=== PATIENT | male | born 1995 | race Two or more races ===

== ENCOUNTER 2019-01-17 02:40 | Emergency (ER) | payer SELFPAY ==
[~2019-01-17] VITALS: Ht 180.3 cm; Wt 108.9 kg
[2019-01-17 03:00] VITALS: BP 158/99
[2019-01-17] MEDS ORDERED: HALOPERIDOL LACTATE 5 MG/ML VIAL. IM ONE (03:00)
--- NOTE | 2019-01-17 03:22 | PHYS DOC ---
Adult General Chief Complaint Chief Complaint: DRUG ABUSE HPI HPI Patient is a 23 year old female with history of polysubstance abuse after smoking methamphetamines. Patient states he has been smoking methamphetamines for the past 8 months and reports voices and feeling paranoid mitchell smoking methamphetamine. States he last smoked 3 days ago and has been out for the past 24 hours. Denies HI, SI, or visual hallucinations. States that he doesn't have hallucinations when not using methamphetamines. Also smokes marijuana and uses occasional alcohol. Denies prescription drug use. Denies history of bipolar schizophrenia or diagnosed mental illness.[] Review of Systems Review of Systems ROS as per HPI All other systems were reviewed and found to be within normal limits, except as documented in this note. Current Medications Current Medications Current Medications Medications (Trade) Dose Ordered Sig/Froylan Start Time Stop Time Status Last Admin Dose Admin Haloperidol Lactate (Haldol Inj) 5 mg 1X ONCE 01/17/19 03:00 01/17/19 03:10 DC 01/17/19 03:08 5 MG Allergies Allergies Allergies Coded Allergies Type Severity Reaction Last Updated Verified No Known Drug Allergies 01/17/19 No Physical Exam Physical Exam Constitutional: Well developed, well nourished, no acute distress, non-toxic appearance. [] HENT: Normocephalic, atraumatic, bilateral external ears normal, oropharynx moist, no oral exudates, nose normal. [] Eyes: PERRLA, EOMI, conjunctiva normal, no discharge. [] Neck: Normal range of motion, no tenderness, supple, no stridor. [] Cardiovascular:Heart rate regular rhythm, no murmur [] Lungs & Thorax: Bilateral breath sounds clear. [) Skin: Warm, dry. [] Back: No tenderness. [] Extremities: No tenderness. [] Neurologic: Alert and oriented X 3, normal motor function, normal sensory function, no focal deficits noted. [] Psychologic: Affect, anxious, no HI/SI, active hallucinations. [] EKG EKG [] Radiology/Procedures Radiology/Procedures [] Course & Med Decision Making Course & Med Decision Making Pertinent Labs and Imaging studies reviewed. (See chart for details) [Patient given haldol with improved sympathology. Recommend outpatient rehab. ] Dragon Disclaimer Dragon Disclaimer This electronic medical record was generated, in whole or in part, using a voice recognition dictation system. Departure Departure Impression: Primary Impression: Methamphetamine abuse Additional Impression: Auditory hallucinations Disposition: 01 HOME, SELF-CARE Condition: STABLE Patient Instructions: Methadone tablets Additional Instructions: Please follow-up with outpatient drug rehabilitation. Avoid future methamphetamine as it increases your risk of mental illness. Problem Qualifiers ABENA MITCHELL DO Jan 17, 2019 03:22
== END 2019-01-17 04:05 | disposition home or self-care (01) ==
LOC: ER 02:40
DX: F15.10 Other stimulant abuse, uncomplicated (principal); F12.10 Cannabis abuse, uncomplicated
CPT/HCPCS: 96372; 99285; J1630